=== PATIENT | female | born 1930 | race Caucasian/White ===

== ENCOUNTER 2019-01-09 23:11 | Inpatient (IN) | payer MEDICARE, OTHER ==
[~2019-01-09] VITALS: Ht 165.1 cm; Wt 60.8 kg
--- NOTE | 2019-01-09 23:46 | NUR ---
dr. stern at the bed side
[2019-01-10] LABS: BASOPHILS # (AUTO) 0.1 /CMM (0.0-0.2); BASOPHILS % (AUTO) 0.8 % (0.0-2.0); EOSINOPHILS % (AUTO) 7.1 % (0.0-6.0); HEMATOCRIT 37 % (33-45); HEMOGLOBIN 12.4 g/dL (11.5-14.8); LYMPHOCYTES # (AUTO) 1.9 /CMM (0.8-4.8); LYMPHOCYTES % (AUTO) 25.8 % (20.0-44.0); MEAN CORPUSCULAR HGB CONC 34 g/dl (31.0-36.0); MEAN CORPUSCULAR VOLUME 93 fL (82-100); MONOCYTES % (AUTO) 13.4 % (2.0-12.0); NEUTROPHILS # (AUTO) 3.8 /CMM (1.8-8.9); NEUTROPHILS % (AUTO) 52.9 % (43.0-81.0); PLATELET COUNT (AUTO) 258 /CMM (150-450); RED BLOOD CELL COUNT(AUTO) 3.95 MIL/uL (4.0-5.2); WHITE BLOOD COUNT (AUTO) 7.2 K/uL (4.3-11.0)
[2019-01-10] MEDS ORDERED: NITROGLYCERIN PACKET 1 GM PACKET TD ONE
[2019-01-10] MEDS ORDERED: ASPIRIN 81 MG TAB.CHEW PO ONE
[2019-01-10 00:10] LABS: CALCIUM, SERUM 8.7 mg/dL (8.5-10.1); CARBON DIOXIDE 27 mmol/L (21-32); CHLORIDE 106 mmol/L (98-107); CREATININE 0.9 mg/dL (0.6-1.3); GLUCOSE 112 mg/dL (74-106); POTASSIUM 3.7 mmol/L (3.5-5.1); SODIUM SERUM 141 mmol/L (136-145); UREA NITROGEN, BLOOD 26 mg/dL (7-18)
[2019-01-10] MEDS ORDERED: NITROGLYCERIN PACKET 1 GM PACKET ONE (00:10)
--- NOTE | 2019-01-10 00:15 | NUR ---
aspirin 162mg held per MD's order as pt has already received 162mg of ASA on field by trailer steerer
[2019-01-10 00:27] LABS: ALANINE AMINOTRANSFERASE 25 U/L (12-78); ALKALINE PHOSPHATASE 404 U/L (46-116); ASPARTATE AMINOTRANSFERASE 58 U/L (15-37); B-TYPE NATRIURETIC PEPTIDE 183 PG/ML (0-125); BILIRUBIN,DIRECT 0.1 mg/dL (0.0-0.2); BILIRUBIN,TOTAL 0.2 mg/dL (0.2-1.0); TOTAL PROTEIN, SERUM 7.1 g/dL (6.4-8.2)
[2019-01-10] MEDS ORDERED: CITA20TA16 PO (02:24)
[2019-01-10] MEDS ORDERED: DILT180C66 PO (02:24)
[2019-01-10] MEDS ORDERED: MEMA10TA PO ×2 (02:24→15:35)
[2019-01-10] MEDS ORDERED: FLEC100T2 PO (02:24)
[2019-01-10] MEDS ORDERED: ALPR0.5T8 PO (02:24)
[2019-01-10] MEDS ORDERED: MAG HYDROX/AL HYDROX/SIMETH 30 ML UDC PO PRN (03:00)
[2019-01-10] MEDS ORDERED: HYDROCODONE/APAP 5/325MG 1 EACH TABLET PO PRN (03:00)
[2019-01-10] MEDS ORDERED: ONDANSETRON HCL/PF 4 MG/2 ML VIAL IVP PRN (03:00)
[2019-01-10] MEDS ORDERED: Z GUARD REMEDY 2 OZ OINT TP PRN (03:00)
[2019-01-10] MEDS ORDERED: MAGNESIUM HYDROXIDE 30 ML UDC PO PRN (03:00)
[2019-01-10] MEDS ORDERED: ZOLPIDEM TARTRATE 5 MG TABLET PO PRN (03:00)
[2019-01-10] MEDS ORDERED: ACETAMINOPHEN 325 MG TABLET PO PRN (03:00)
[2019-01-10] MEDS ORDERED: ALPRAZOLAM 0.5 MG TABLET PO PRN (03:00)
--- NOTE | 2019-01-10 03:45 | NUR ---
RECEIVED PATIENT FROM ED VIA GURNEY IN STABLE CONDITION. PATIENT AWAKE, A/O X2-3, WITH NO DISTRESS NOTED. SON AT BEDSIDE. PERIPHERAL LINE INTACT AND PATENT. NO C/O CHEST PAIN OR DISCOMFORT. ENCOURAGED USE OF CALL LIGHT FOR ASSISTANCE AND VERBALIZED GOOD UNDERSTANDING. ROOM FREE OF CLUTTER AND BELONGINGS KEPT NEAR BEDSIDE. WILL CONTINUE TO MONITOR
--- NOTE | 2019-01-10 03:55 | NUR ---
PT WAS TRANSFERRED TO 113-2 UNDER ACLS
[2019-01-10] MEDS: IV NS 0.9% 1,000 ML IV SCH ×2 (04:28→12:58)
[2019-01-10 06:18] LABS: CALCIUM, SERUM 8.5 mg/dL (8.5-10.1); CREATININE 0.9 mg/dL (0.6-1.3); PHOSPHORUS 3.8 mg/dL (2.5-4.9)
--- NOTE | 2019-01-10 06:25 | NUR ---
SOLID WASTE COLLECTOR NOTES PATIENT ASLEEP IN BED WITH NO DISTRESS NOTED. CALL LIGHT WITHIN REACH. NO EPISODES OF CHEST PAIN. NO C/O PAIN OR DISCOMFORT. PERIPHERAL LINE INTACT AND PATENT. ROOM CHANGED TO [facility] PER PATIENT REQUEST. BED IN LOW LOCK SETTING. ROOM FREE OF CLUTTER AND BELONGINGS KEPT NEAR BEDSIDE. WILL ENDORSE TO ONCOMING SHIFT.
[2019-01-10 06:53] LABS: BASOPHILS % (AUTO) 0.6 % (0.0-2.0); HEMATOCRIT 36 % (33-45); LYMPHOCYTES # (AUTO) 2.2 /CMM (0.8-4.8); LYMPHOCYTES % (AUTO) 31.6 % (20.0-44.0); MEAN CORPUSCULAR HGB CONC 33 g/dl (31.0-36.0); MEAN CORPUSCULAR VOLUME 93 fL (82-100); MONOCYTES # (AUTO) 1.1 /CMM (0.1-1.30); MONOCYTES % (AUTO) 14.9 % (2.0-12.0); NEUTROPHILS % (AUTO) 42.9 % (43.0-81.0); PLATELET COUNT (AUTO) 248 /CMM (150-450); RED BLOOD CELL COUNT(AUTO) 3.87 MIL/uL (4.0-5.2); WHITE BLOOD COUNT (AUTO) 7.1 K/uL (4.3-11.0)
--- NOTE | 2019-01-10 08:16 | NUR ---
RN NOTE RECIEVED PATIENT IN BED WAKE AND ALERT X 3. SINUS RODRÍGUEZ ON TELE MONITOR. HR 59.NO SOB NOTED, ON ROOM AIR. NO COMPLAINTS OF PAIN OR DISCOMFORT. NO COMPLAINTS OF CHEST PAIN. VITAL SIGNS STABLE. SKIN INTACT BUT WITH LEFT FOOD MEDIAL REDNESS. CURRENTLY NPO. WITH HEPLOCK ON RIGHT UPPER FOREARM AND FLUSHES WELL. CURRENTLY RUNNING WITH IVF 100ML/HR. BED LOCKED IN LOWEST POSITION. WILL CONTINUE TO MONITOR.
[2019-01-10 09:00] VITALS: BP 156/72
[2019-01-10] MEDS ORDERED: CITALOPRAM HYDROBROMIDE 20 MG TABLET PO SCH (09:00)
[2019-01-10] MEDS ORDERED: MEMANTINE HCL 5 MG TABLET PO SCH (09:00)
[2019-01-10] MEDS ORDERED: FLECAINIDE ACETATE (100 MG) 100 MG TABLET PO SCH (09:00)
--- NOTE | 2019-01-10 09:00 | NUR ---
GAMING TABLE OPERATOR NOTE SPOKE WITH [facility] [employer] STATED OK TO EAT WILL BE DONE ABDOMEN IS LATTER AFTERNOON
[2019-01-10] MEDS: DILTIAZEM HCL 30 MG TABLET PO SCH ×2 (09:22→16:18)
--- NOTE | 2019-01-10 11:52 | NUR ---
KNOCKUP WORKER NOTE PER DR LÓPEZ STATED ABDOMEN CALLED MICHELLE AGAIN WILL BE DONE SOON
--- NOTE | 2019-01-10 12:13 | NUR ---
MS RN NOTES COMPLAINT OF UPPER EPIGASTRIC PAIN AND CHEST PAIN. TYLENOL WAS GIVEN. WILL FOLLOW UP.
--- NOTE | 2019-01-10 13:01 | NUR ---
EAR NOSE THROAT SURGEON NOTE 2D ECHO DONE ORDERED WILL MONITOR
--- NOTE | 2019-01-10 14:30 | NUR ---
MS RN NOTE ABDOMINAL US DONE ORDERED
[2019-01-10 16:00] VITALS: BP 143/72
[2019-01-10 16:18] VITALS: BP 143/72
--- NOTE | 2019-01-10 16:29 | NUR ---
director telehealth note dr vann notified about us abdomen .
--- NOTE | 2019-01-10 17:18 | NUR ---
MS RN NOTE PER DR LÓPEZ OK TO D\C HOME , D\C INSTRUCTION GIVEN, UNDERSTOOD ,HL REMOVED, NO BLEEDING NOTED , INSTRUCTED HOW TO TAKE HOME MEDS AND POSSIBLE SIDE EFFECTS,INSTRUCTED TO F\U WITH PRIMARY CARE DOCTOR AND RETURN FOR WORSENING SYMPTOMS, BELONGING SIGHED ,WENT HOME WITH JULIO CONDITION, WENT TO LOBBY BY WALKING WITH TRANSPORTATION SALES CONSULTANT
== END 2019-01-10 17:17 | disposition home or self-care (01) | DRG 443 ==
LOC: ER 23:13 → TELE1 01-10 03:30 → MEDSG1 01-10 09:51
PROVIDERS: ADMIT Family Medicine; ATTEND Internal Medicine
DX: K76.89 Other specified diseases of liver (principal); K74.60 Unspecified cirrhosis of liver; Z79.899 Other long term (current) drug therapy; I10 Essential (primary) hypertension; F03.90 Unspecified dementia, unspecified severity, without behavioral disturbance, psychotic disturbance, mood disturbance, and anxiety; R74.8 Abnormal levels of other serum enzymes
CPT/HCPCS: 36415; 71045-TC; 76700-TC; 80048-TC; 80061-TC; 80076-TC; 83690-TC; 83735-TC; 83880; 84100-TC; 84484-TC; 85025-TC; 85378-TC; 87081-TC; 93307-TC; G0378; J7030